=== PATIENT | female | born 1985 | race Caucasian/White ===

== ENCOUNTER 2017-05-25 15:00 | Emergency (ER) | payer OTHER ==
[2017-05-25 15:10] VITALS: RESP 16; TEMP 97.7; O2SAT 98
[2017-05-25] MEDS ORDERED: NS 500 ML IV ONE (16:06)
--- NOTE | 2017-05-25 16:08 | CPEKG ---
Heart Rate: 80 RR Interval: 750 P-R Interval: 100 QRSD Interval: 104 QT Interval: 384 QTC Interval: 443 P South Range: 54 QRS South Range: 90 T Wave South Range: 41 EKG Severity - BORDERLINE ECG - EKG Impression: SINUS RHYTHM EKG Impression: SHORT NV INTERVAL, ACCELERATED AV CONDUCTION EKG Impression: CONSIDER RIGHT VENTRICULAR HYPERTROPHY Electronically Signed By: Aleida Richard 25-May-2017 20:01:11
--- NOTE | 2017-05-25 16:15 | EDPHY ---
H & P Time Seen by Provider: 05/25/17 15:32 HPI/ROS: HPI Lightheaded, weakness. 31-year-old female by private vehicle with her . This patient reports that she has had a sensation of lightheadedness with physical exertion as well as some mild associated shortness of breath. She reports this has been on and off for the last week. She also reports having a strong heartbeat but but denies palpitations as described as an irregular or excessively fast heartbeat. No chest pain. No fever. No other complaints. ROS: Constitutional: No fever, no chills. As above. Eyes: No discharge. No changes in vision. ENT: No sore throat. No nasal congestion or rhinorrhea. Respiratory: No cough. No shortness of breath. Cardiac: No chest pain, no palpitations. Gastrointestinal: No abdominal pain, no vomiting, no diarrhea. Genitourinary: No hematuria. No dysuria or increased frequency with urination. Musculoskeletal: No back pain. No neck pain. No myalgias or arthralgias. Skin: No rashes. Neurological: No headache. No focal weakness or altered sensation. Past medical history: Graves disease. Radiated. Social history: Nonsmoker. No alcohol. Here with . Physical Exam: General Appearance: Alert, no distress. This patient is responding to questions appropriately and in full sentences. This patient appears well- hydrated and well-nourished. Eyes: Pupils equal and round no pallor or injection. No lid edema, erythema or injection. ENT, Mouth: Mucous membranes are moist. The pharyngeal tissues are unremarkable. No edema or swelling. No asymmetry suggestive of abscess. No erythema or exudates. Respiratory: There are no retractions, lungs are clear to auscultation with good air movement bilaterally. Cardiovascular: Regular rate and rhythm. No murmur. Gastrointestinal: Abdomen is soft and nontender, no masses, bowel sounds normal. No focal tenderness at McBurney's point. No Del Rosario sign. Neurological: Motor sensory function is grossly intact. Cranial nerves are normal. Gait is normal. Skin: Warm and dry, no rashes. Musculoskeletal: Neck is supple and nontender. Extremities are symmetrical. All joints range without pain or impingement. Psychiatric: No agitation. No depression. Database: EKG: EKG time is 4:06 p.m.; EKG shows a narrow complex normal sinus rhythm with a ventricular rate of 80. Short p.r. interval noted. No delta wave. Possible right ventricular hypertrophy. The QRS, QT intervals are within normal limits. There are no ST-T wave changes indicative of ischemic or injury pattern. No evidence of right heart strain. No evidence of WPW, Brugada syndrome, hypertrophic cardiomyopathy. Interpreted by me. Imaging: Chest x-ray PA and lateral; the cardiac mediastinal silhouette is unremarkable. No evidence of infiltrate or pneumothorax. No acute cardiopulmonary disease process noted. Interpreted by me. Procedures: Emergency department course: IV placed. She was placed on a radiation monitor. She was started on IV normal saline with 500 cc to be given over the next hour. EKG obtained and reviewed by myself. 5:00 p.m., patient re-evaluated. Resting comfortably at this time. Vital signs reviewed and are normal. I discussed results of all diagnostic tests in the emergency department. The differential diagnosis was reviewed. She feels comfortable going home at this time and I feel she is safe for discharge. Plan will be to have her follow up with [facility] for re-evaluation and echocardiogram. She has been instructed not to engage in any strenuous physical activity until seen and cleared by Cardiology. She endorses this plan. She understands for follow-up. Return to emergency department precautions were reviewed with her and her in detail. All of their questions were answered. She was discharged in good condition. Differential Diagnosis: The differential diagnosis on this patient includes but is not limited to all anxiety reaction, SVT, paroxysmal AFib, dehydration. WPW, Brugada syndrome, hypertrophic cardiomyopathy, PE, hyperthyroid, hypothyroid, hypokalemia, anemia unlikely. This represents a partial list of diagnoses considered. These considerations are based on history, physical exam, past history, reassessment and diagnostic testing. Smoking Status: Never smoked Constitutional: Initial Vital Signs Temperature (C) 36.5 C 05/25/17 15:07 Heart Rate 92 05/25/17 15:07 Respiratory Rate 16 05/25/17 15:07 Blood Pressure 151/93 H 05/25/17 15:07 O2 Sat (%) 98 05/25/17 15:07 O2 Delivery Mode Room Air Allergies/Adverse Reactions: No Known Allergies Allergy (Unverified 05/25/17 15:06) Home Medications: Medication Instructions Recorded NK [No Known Home Meds] 05/25/17 Medical Decision Making - Diagnostics Imaging Results: Imaging Impressions Chest X-Ray 05/25/17 16:09 Impression: Normal chest x-ray. - Data Points Laboratory Results: Laboratory Results 05/25/17 16:05 05/25/17 16:05 05/25/17 05/25/17 05/25/17 16:05 16:05 16:05 WBC RBC Hgb Hct MCV MCH MCHC RDW Plt Count MPV Neut % (Auto) Lymph % (Auto) Prentiss % (Auto) Eos % (Auto) Baso % (Auto) Nucleat RBC Rel Count Absolute Neuts (auto) Absolute Lymphs (auto) Absolute Monos (auto) Absolute Eos (auto) Absolute Basos (auto) Absolute Nucleated RBC Immature Gran % Immature Gran # D-Dimer Sodium 139 mEq/L mEq/L (134-144) Potassium 3.9 mEq/L mEq/L (3.5-5.2) Chloride 103 mEq/L mEq/L (97-110) Carbon Dioxide 23 mEq/l mEq/l (22-31) Anion Gap 13 mEq/L mEq/L (8-16) BUN 12 mg/dL mg/dL (7-23) Creatinine 0.8 mg/dL mg/dL (0.6-1.0) Estimated GFR > 60 Glucose 101 mg/dL H mg/dL (70-100) Calcium 9.8 mg/dL mg/dL (8.5-10.4) TSH 1.580 uIU/mL uIU/mL (0.465-4.680) Beta HCG, Qual NEGATIVE Urine Color PALE YELLOW Urine Appearance CLEAR Urine pH 7.0 (5.0-7.5) Ur Specific Sharon 1.004 (1.002-1.030) Urine Protein NEGATIVE (NEGATIVE) Urine Ketones NEGATIVE (NEGATIVE) Urine Blood NEGATIVE (NEGATIVE) Urine Nitrate NEGATIVE (NEGATIVE) Urine Bilirubin NEGATIVE (NEGATIVE) Urine Urobilinogen NEGATIVE EU EU (0.2-1.0) Ur Leukocyte Esterase NEGATIVE (NEGATIVE) Urine Glucose NEGATIVE (NEGATIVE) 05/25/17 05/25/17 16:05 16:05 WBC 6.72 10^3/uL 10^3/uL (3.80-9.50) RBC 5.06 10^6/uL 10^6/uL (4.18-5.33) Hgb 15.4 g/dL g/dL (12.6-16.3) Hct 44.8 % % (38.0-47.0) MCV 88.5 fL fL (81.5-99.8) MCH 30.4 pg pg (27.9-34.1) MCHC 34.4 g/dL g/dL (32.4-36.7) RDW 11.6 % % (11.5-15.2) Plt Count 224 10^3/uL 10^3/uL (150-400) MPV 10.2 fL fL (8.7-11.7) Neut % (Auto) 67.6 % % (39.3-74.2) Lymph % (Auto) 22.6 % % (15.0-45.0) Prentiss % (Auto) 6.7 % % (4.5-13.0) Eos % (Auto) 2.1 % % (0.6-7.6) Baso % (Auto) 0.7 % % (0.3-1.7) Nucleat RBC Rel Count 0.0 % % (0.0-0.2) Absolute Neuts (auto) 4.54 10^3/uL 10^3/uL (1.70-6.50) Absolute Lymphs (auto) 1.52 10^3/uL 10^3/uL (1.00-3.00) Absolute Monos (auto) 0.45 10^3/uL 10^3/uL (0.30-0.80) Absolute Eos (auto) 0.14 10^3/uL 10^3/uL (0.03-0.40) Absolute Basos (auto) 0.05 10^3/uL 10^3/uL (0.02-0.10) Absolute Nucleated RBC 0.00 10^3/uL 10^3/uL (0-0.01) Immature Gran % 0.3 % % (0.0-1.1) Immature Gran # 0.02 10^3/uL 10^3/uL (0.00-0.10) D-Dimer 0.27 ug/mLFEU ug/mLFEU (0.00-0.50) Sodium Potassium Chloride Carbon Dioxide Anion Gap BUN Creatinine Estimated GFR Glucose Calcium TSH Beta HCG, Qual Urine Color Urine Appearance Urine pH Ur Specific Sharon Urine Protein Urine Ketones Urine Blood Urine Nitrate Urine Bilirubin Urine Urobilinogen Ur Leukocyte Esterase Urine Glucose Medications Given: Discontinued Medications Sodium Chloride (Ns) 500 mls @ 1,000 mls/hr IV EDNOW ONE PRN Reason: Protocol Stop: 05/25/17 16:35 Last Admin: 05/25/17 16:31 Dose: 500 mls Departure - Departure Disposition: Home, Routine, Self-Care Clinical Impression: Lightheaded Condition: Good Instructions: Lightheadedness (ED) Additional Instructions: Read and follow provided instructions. Follow-up with Cardiology, Dr. Ezra Lee or 1 of his partners at [facility] this week for re-evaluation and echocardiogram. Call Saturday at 9:00 a.m. for appointment time. Explained this is for an emergency department follow-up for your lightheadedness. They will be able to access copies of her EKG as well. Keep well hydrated and get plenty of rest. No strenuous physical activity until you have been seen and cleared by Cardiology. Return to the emergency department for worsening symptoms, chest pain, shortness of breath, palpitations or other serious concerns. Referrals: Ezra Lee MD [Medical Doctor] - As per Instructions
[2017-05-25 16:16] LABS: % IMMATURE GRANULYOCYTES 0.3 % (0.0-1.1); ABSOLUTE IMMATURE GRANULOCYTES 0.02 10^3/uL (0.00-0.10); ADD DIFF? NO; ADD MORPH? NO; ADD SCAN? NO; ATYPICAL LYMPHOCYTE FLAG 20 (0-99); FRAGMENT RBC FLAG 0 (0-99); HEMATOCRIT 44.8 % (38.0-47.0); HEMOGLOBIN 15.4 g/dL (12.6-16.3); LEFT SHIFT FLG 0 (0-99); LIPEMIA HEMOLYSIS FLAG 90 (0-99); MEAN CELL HEMOGLOBIN 30.4 pg (27.9-34.1); MEAN CELL HEMOGLOBIN CONCENTR. 34.4 g/dL (32.4-36.7); MEAN CELL VOLUME 88.5 fL (81.5-99.8); MEAN PLATELET VOLUME 10.2 fL (8.7-11.7); PLATELET CLUMPS FLAG 20 (0-99); PLATELET COUNT 224 10^3/uL (150-400); RED BLOOD CELL COUNT 5.06 10^6/uL (4.18-5.33); RED CELL DISTRIBUTION WIDTH 11.6 % (11.5-15.2)
[2017-05-25 16:20] LABS: COLOR PALE YELLOW; LEUKOCYTE ESTERASE,URINE NEGATIVE (NEGATIVE); NITRITE,URINE NEGATIVE (NEGATIVE)
[2017-05-25 16:28] LABS: ANION GAP 13 mEq/L (8-16); CALCIUM 9.8 mg/dL (8.5-10.4); CARBON DIOXIDE 23 mEq/l (22-31); CHLORIDE 103 mEq/L (97-110); CREATININE 0.8 mg/dL (0.6-1.0); GLOMERULAR FILTRATION RATE > 60; GLUCOSE 101 mg/dL (70-100); POTASSIUM 3.9 mEq/L (3.5-5.2); SODIUM 139 mEq/L (134-144)
[2017-05-25 17:21] VITALS: BP 112/78; PULSE 72
== END 2017-05-25 17:19 | disposition home or self-care (01) ==
DX: R42 Dizziness and giddiness (principal); E86.9 Volume depletion, unspecified

== ENCOUNTER → 2018-03-17 | Outpatient (CLI) | payer OTHER | LOC: CIMAGING 13:44 | PROVIDERS: ATTEND Hospitalist | DX: N64.89 Other specified disorders of breast (principal) | CPT/HCPCS: 76641-PO ==

== ENCOUNTER 2018-07-17 12:46 | Inpatient (IN) | payer OTHER ==
[2018-07-17] MEDS ORDERED: OLIVE OIL 118 ML BTL MISC PRN (13:00)
[2018-07-17] MEDS ORDERED: IBUPROFEN 600 MG TAB PO PRN (13:00)
[2018-07-17] MEDS ORDERED: OXYTOCIN/RINGERS LACTATE 1,000 ML IV PRN (13:00)
[2018-07-17] MEDS ORDERED: MISOPROSTOL 200 MCG TAB PR PRN (13:00)
[2018-07-17] MEDS ORDERED: EPSOM SALT 454 GM TP PRN (13:00)
[2018-07-17] MEDS ORDERED: LIDOCAINE 1% 300 MG/30 ML SDV SC PRN (13:00)
[2018-07-17] MEDS ORDERED: TERBUTALINE SULFATE 1 MG/ML VIAL IV PRN (13:00)
[2018-07-17] MEDS ORDERED: LR 1,000 ML IV PRN (13:00)
[2018-07-17] MEDS ORDERED: AMMONIA AROMATIC 1 EACH AMP IH ONE (14:26)
[2018-07-17] MEDS ORDERED: MISOPROSTOL 200 MCG TAB ONE (14:26)
[2018-07-17] MEDS ORDERED: OLIVE OIL 118 ML BTL ONE (14:26)
[2018-07-17] MEDS ORDERED: OXYTOCIN 10 UNIT/ML VIAL ONE (14:26)
[2018-07-17] MEDS ORDERED: LIDOCAINE 1% 300 MG/30 ML SDV ONE (14:26)
[2018-07-17] MEDS ORDERED: TERBUTALINE SULFATE 1 MG/ML VIAL ONE (14:26)
[2018-07-17 14:32] LABS: PLATELET COUNT 184 10^3/uL (150-400)
[2018-07-17] MEDS ORDERED: LR 500 ML IV PRN (19:18)
--- NOTE | 2018-07-17 19:26 | PDGENHP ---
History and Physical - Chief Complaint Active labor - History of Present Illness Blanca is a 32 yo G1 today at 40w2d who presented this afternoon in active labor , dilated to 7-8cm, intact. She reports that she's been in prodromal early labor for many many hours at this point. Ctx's starting to get more regular, but not really intense until around 9am this AM. GBS negative. overall uncomplicated - hypothyroidism on Synthroid, H/o SAB x 2, issues with intermittent heart palpitations, marginal cord insertion. Anemic at 28 wks and started on iron. Most recently there had been a concern for oligohydramnios with an AMBIKA of 6 last week, with more reassuring values (15) on repeat scans earlier this week. labs: - A pos - Antibody negative - RPR NR - Hep B neg - HIV neg - Rubella IMMUNE - GC/c neg - Glucola 83 - GBS NEGATIVE History Information - Allergies/Home Medication List Allergies/Adverse Reactions: No Known Allergies Allergy (Unverified 07/17/18 13:59) Home Medications: Levothyroxine [Synthroid 137 mcg (*)] 137 mcg PO DAILY06 07/17/18 [Last Taken 1 Day Ago ~07/16/18] Vit27&Calcium/Iron/FA [] 07/17/18 [Last Taken 1 Day Ago ~07/16] I have personally reviewed and updated: family history, medical history, social history, surgical history - Past Medical History Additional medical history: Anemia, Hypothyroidism, H/o heart palpitations - Surgical History Additional surgical history: SAB x 2, HSC w polypectomy 2016, D&C for missed AB 2016 - Family History Additional family history: None - Social History Smoking Status: Never smoked Alcohol Use: None Review of Systems Review of Systems: ROS: 10pt was reviewed & negative except for what was stated in HPI & below Physical Exam Physical Exam: Appears uncomfortable, luis regularly Belly gravid, soft between contractions Lab Data & Imaging Review 07/17/18 14:15 WBC 16.32 10^3/uL (3.80-9.50) H 07/17/18 14:15 RBC 4.65 10^6/uL (4.18-5.33) 07/17/18 14:15 Hgb 14.6 g/dL (12.6-16.3) 07/17/18 14:15 Hct 41.8 % (38.0-47.0) 07/17/18 14:15 MCV 89.9 fL (81.5-99.8) 07/17/18 14:15 MCH 31.4 pg (27.9-34.1) 07/17/18 14:15 MCHC 34.9 g/dL (32.4-36.7) 07/17/18 14:15 RDW 12.2 % (11.5-15.2) 07/17/18 14:15 Plt Count 184 10^3/uL (150-400) 07/17/18 14:15 MPV 11.1 fL (8.7-11.7) 07/17/18 14:15 Neut % (Auto) 89.5 % (39.3-74.2) H 07/17/18 14:15 Lymph % (Auto) 5.3 % (15.0-45.0) L 07/17/18 14:15 Love % (Auto) 4.7 % (4.5-13.0) 07/17/18 14:15 Eos % (Auto) 0.0 % (0.6-7.6) L 07/17/18 14:15 Baso % (Auto) 0.2 % (0.3-1.7) L 07/17/18 14:15 Nucleat RBC Rel Count 0.0 % (0.0-0.2) 07/17/18 14:15 Absolute Neuts (auto) 14.61 10^3/uL (1.70-6.50) H 07/17/18 14:15 Absolute Lymphs (auto) 0.86 10^3/uL (1.00-3.00) L 07/17/18 14:15 Absolute Monos (auto) 0.77 10^3/uL (0.30-0.80) 07/17/18 14:15 Absolute Eos (auto) 0.00 10^3/uL (0.03-0.40) L 07/17/18 14:15 Absolute Basos (auto) 0.03 10^3/uL (0.02-0.10) 07/17/18 14:15 Absolute Nucleated RBC 0.00 10^3/uL (0-0.01) 07/17/18 14:15 Immature Gran % 0.3 % (0.0-1.1) 07/17/18 14:15 Immature Gran # 0.05 10^3/uL (0.00-0.10) 07/17/18 14:15 Patient ABO/Rh A POSITIVE 07/17/18 14:15 Antibody Screen NEGATIVE 07/17/18 14:15 Imaging Review: FHR 150bpm, mod gama, accels present, no decels Assessment & Plan Assessment: 32 yo G1 at 40w2d presents in active labor. - Expectant mgmt, planning unmedicated . - GBS negative. - Cont Synthroid PP, consider dose reduction. - Anemia - PP iron. - Rh pos, Rubella immune. TEJAL
[2018-07-17] MEDS ORDERED: OXYTOCIN/RINGERS LACTATE 500 ML IV SCH (19:30)
--- NOTE | 2018-07-17 22:10 | OBDEL ---
Info Type: Vaginal Presentation at Delivery: Vertex L&D Analgesia/Anesthesia Type: None GBS+: No Intrapartum Medications: Generic Name Dose Route Start Last Admin Trade Name Freq PRN Reason Stop Dose Admin Lactated Ringer's 1,000 mls @ 0 mls/hr 07/17/18 13:00 07/17/18 19:38 Lr IV 07/18/18 12:59 1,000 mls PRN PRN Administration SEE PROTOCOL CONDITIONS Protocol Per Protocol Oxytocin/Lactated Ringer's 500 mls @ 0 mls/hr 07/17/18 19:30 07/17/18 19:38 Pitocin 30 Units/Lr (Premix) IV 01/13/19 19:29 500 mls CONT FRANKLIN Administration Protocol Per Protocol Discontinued Medications Generic Name Dose Route Start Last Admin Trade Name Freq PRN Reason Stop Dose Admin Ibuprofen 600 mg 07/17/18 13:00 07/17/18 21:46 Motrin PO 600 mg ONCE PRN Administration post , pain Indications for Delivery: Spontaneous Labor Vaginal Delivery - Delivery Provider Delivery Physician/CNM: Alessandro Quintero - Labor and Delivery Onset of Contractions Date: 07/17/18 Onset of Contractions Time: 09:00 Onset of Contractions Type: Augmented Rupture of Membranes Date: 07/17/18 Rupture of Membranes Time: 15:28 Rupture of Membranes Type: Artificial Amniotic Fluid Color: Clear Placenta Delivery Date: 07/17/18 Placenta Delivery Time: 20:40 Total Hours of Labor: 11 Non-surgical Procedures: Amniotomy Laceration: 2nd Degree, Other (Specify) (Left sidewall, left labial) Repair: 3-0, 4-0 Vaginal Sponge Count Correct: Yes Vaginal Needle Count Correct: Yes Vaginal Sweep Performed: Yes EBL: 600 Delivery Events: Post Hemorrhage (Slow ongoing bleeding during stage 2, bleeding from repair. Never atony.) Delivery Comment: Patient presented at 7cm, desired natural labor/unmedicated. Progressed to complete, pushed for about 2 hrs before contractions spaced out, Pitocin added. Started to have slow ongoing bleeding for the last hour of stage II. Ultimately delivered in the squatting position on squat stool - baby delivered OA controlled. Nuchal cord x 1 loose and reduced at perineum. Baby up to mom' s chest. Eventually transferred mom and baby with cord still uncut to the bed. Cord clamped and cut after 4 minutes. Placenta delivered spontaneously. Uterus firm and contracted right away, no atony. Ongoing bleeding during repair of 2nd degree and left vaginal sidewall and left labial lac. Tissues very edematous with large varicosities which added to bleeding from laceration. - Medications Labor Augmentation/Induction Methods Used: Pitocin Labor Augmentation/Induction Indication: Inadequate Contraction Frequency Data GIAN: 07/15/18 Gestational Age: 40 week(s) and 2 day(s) Calderon Delivery Date: 07/17/18 Delivery Time: 20:38 Sex of : Female (Jeanne) Score (1 Min): 8 Score (5 Min): 9 Shoulder Dystocia Time Head Delivered: 20:38 Time Body Delivered: 20:39 ICD10 Worksheet Patient Problems: Problems Problem Status Onset PPH ( hemorrhage) Acute (spontaneous vaginal delivery) Acute - ICD10 Problem Qualifiers (1) (spontaneous vaginal delivery) (2) PPH ( hemorrhage) Qualifiers: hemorrhage type: other immediate Qualified Code(s): O72.1 - Other immediate hemorrhage
[2018-07-17] MEDS ORDERED: SIMETHICONE 80 MG TAB CHEW PO PRN (22:12)
[2018-07-17] MEDS ORDERED: oxyCODONE IR 5 MG TAB PO PRN (22:12)
[2018-07-17] MEDS ORDERED: HYDROCORTISONE 0.5% CREAM TP PRN (22:12)
[2018-07-17] MEDS: ACETAMINOPHEN 325 MG TAB PO SCH (22:15)
[2018-07-18] MEDS: IBUPROFEN 600 MG TAB PO SCH ×3 (03:45→17:52)
[2018-07-18] MEDS: LEVOTHYROXINE 137 MCG TAB PO SCH (06:16)
[2018-07-18] MEDS: ACETAMINOPHEN 325 MG TAB PO SCH ×4 (09:23→22:00)
[2018-07-18] MEDS: DOCUSATE SODIUM 100 MG CAP PO PRN (11:12)
--- NOTE | 2018-07-18 12:28 | OBPP ---
Progress Note Assessment/Plan: Assessment: 1) s/p with PPH with EBL 600 cc secondary to vag lac and repair, no atony POD # 0.5 - pt is stable 2) Anemia - pt is asymptomatic 3) Hypothyroid - stable on meds Plan: Continue routine pp care Will start iron BID, cont colace Encourage ambulation support prn 07/18/18 12:32 Subjective/ Course: 07/18/18 12:29 Pt seen and examined. Doing well, no complaints. She is mostly sore in her rectum. Denies any cramping. Mod lochia. Pt is OOB, luis reg diet, voiding and passing flatus. Denies any f/c/n/v/CP or SOB. She is not dizzy when OOB. BF well so far, working with . Objective: 07/18/18 00:30 Patient ABO/Rh A POSITIVE 07/17/18 14:15 Temp Pulse Resp BP Pulse Ox 36.8 C 116 H 16 98/66 L 97 07/18/18 08:00 07/18/18 08:00 07/18/18 08:00 07/18/18 08:00 07/18/18 05:12 Uterine Position/Fundal Height: Umbilicus -1 Uterine Tone: Firm Physical Exam - Physical Exam General Appearance: WD/WN, alert, no apparent distress Respiratory: lungs clear, normal breath sounds Cardiac/Chest: regular rate, rhythm Abdomen: normal bowel sounds, non-tender, soft, flatus (+) Extremities: non-tender, normal inspection Skin: normal color, warm/dry Neuro/Psych: alert, normal mood/affect, oriented x 3
[2018-07-18] MEDS: FERROUS SULFATE 140 MG TAB.ER PO SCH (14:29)
[2018-07-19] MEDS: IBUPROFEN 600 MG TAB PO SCH ×3 (01:27→16:03)
[2018-07-19] MEDS: ACETAMINOPHEN 325 MG TAB PO SCH ×2 (04:15→15:09)
[2018-07-19] MEDS: LEVOTHYROXINE 137 MCG TAB PO SCH (05:38)
[2018-07-19] MEDS: FERROUS SULFATE 140 MG TAB.ER PO SCH (08:35)
[2018-07-19] MEDS: DOCUSATE SODIUM 100 MG CAP PO PRN (08:35)
[2018-07-19 08:58] VITALS: BP 105/71
--- NOTE | 2018-07-19 13:13 | OBGCSDC ---
General Delivery Information - General Info : 3 Para: 1 Abortions: 0 Type: Vaginal L&D Analgesia/Anesthesia Type: None Admission Date: 07/17/18 Labs: Patient ABO/Rh A POSITIVE 07/17/18 14:15 Hct 26.1 % (38.0-47.0) L 07/18/18 00:30 - Hospital Course : 07/18/18 12:29 Pt seen and examined. Doing well, no complaints. She is mostly sore in her rectum. Denies any cramping. Mod lochia. Pt is OOB, luis reg diet, voiding and passing flatus. Denies any f/c/n/v/CP or SOB. She is not dizzy when OOB. BF well so far, working with . 07/19/18 13:09 Pt is doing much better this am. She has good pain control with alternating Ibuprofen and Tylenol. She tried a sitz bath which was also helpful. She is ambulating and voiding without difficulty and has min lochia. Baby is nursing well and she is working on latching. She feels ready to d/c home. Vaginal - Delivery Provider Delivery Physician/CNM: Alessandro Quintero - Diagnosis Labor: Augmented Rupture of Membranes Type: Artificial Amniotic Fluid Color: Clear Laceration: 2nd Degree, Other (Specify) (Left sidewall, left labial) Repair: 3-0, 4-0 Delivery Events: Post Hemorrhage (Slow ongoing bleeding during stage 2, bleeding from repair. Never atony.) - Procedures Non-surgical Procedures: Amniotomy - Delivery Non-surgical Procedures: Amniotomy EBL: 600 Data GIAN: 07/15/18 Gestational Age: 40 week(s) and 4 day(s) Calderon Delivery Date: 07/17/18 Delivery Time: 20:38 Sex of : Female (Jeanne) Score (1 Min): 8 Score (5 Min): 9 Discharge Information - Discharge Information Prescriptions: Ferrous Sulfate [Slow Fe 140 MG (*)] 140 mg PO DAILY #60 tab.er Ibuprofen [Motrin (*)] 600 mg PO Q6H #30 tab Condition: Good Instruction/Follow Up: Four Weeks, Six Weeks
--- NOTE | 2018-07-19 13:13 | OBPP ---
Progress Note Assessment/Plan: Assessment: 32 y/o PPD #2 s/p with PP hemorrhage doing well. Plan: D/ c home today with Rx ibuprofen and iron supplementation. Follow-up @ [facility] 4 and 6 weeks. Call for fever, heavy vaginal bleeding, breast issues or other complaints. 07/19/18 13:11 Subjective/ Course: 07/18/18 12:29 Pt seen and examined. Doing well, no complaints. She is mostly sore in her rectum. Denies any cramping. Mod lochia. Pt is OOB, luis reg diet, voiding and passing flatus. Denies any f/c/n/v/CP or SOB. She is not dizzy when OOB. BF well so far, working with . 07/19/18 13:09 Pt is doing much better this am. She has good pain control with alternating Ibuprofen and Tylenol. She tried a sitz bath which was also helpful. She is ambulating and voiding without difficulty and has min lochia. Baby is nursing well and she is working on latching. She feels ready to d/c home. Objective: 07/18/18 00:30 Patient ABO/Rh A POSITIVE 07/17/18 14:15 Temp Pulse Resp BP Pulse Ox 36.8 C 99 16 105/71 97 07/19/18 08:58 07/19/18 08:58 07/19/18 08:58 07/19/18 08:58 07/19/18 08:58 Uterine Position/Fundal Height: Umbilicus -2 Uterine Tone: Firm Physical Exam - Physical Exam General Appearance: alert, no apparent distress Neck: non-tender, full range of motion, supple Respiratory: chest non-tender, lungs clear, normal breath sounds Cardiac/Chest: regular rate, rhythm Abdomen: normal bowel sounds Extremities: swelling (no), Andrey's sign (neg)
--- NOTE | 2018-07-20 14:56 | CPEKG ---
Test Reason : OPEN Blood Pressure : / mmHG Vent. Rate : 115 BPM Atrial Rate : 113 BPM P-R Int : 112 ms QRS Dur : 100 ms QT Int : 321 ms P-R-T Axes : 057 074 036 degrees QTc Int : 444 ms Sinus tachycardia Confirmed by Sukhjinder Ching ([id number]) on 07/20/2018 2:55:40 PM Referred By: Confirmed By:Sukhjinder Ching
== END 2018-07-19 16:20 | disposition home or self-care (01) | DRG 806 ==
LOC: FLD 12:46 → FOB 07-18 03:00
PROVIDERS: ADMIT Obstetrics & Gynecology; ATTEND Obstetrics & Gynecology
DX: O99.02 Anemia complicating childbirth (principal); Z37.0 Single live birth; O72.2 Delayed and secondary postpartum hemorrhage; O70.1 Second degree perineal laceration during delivery; Z3A.40 40 weeks gestation of pregnancy; D64.9 Anemia, unspecified; E03.9 Hypothyroidism, unspecified; O69.82X0 Labor and delivery complicated by other cord entanglement, without compression, not applicable or unspecified; O99.284 Endocrine, nutritional and metabolic diseases complicating childbirth
CPT/HCPCS: J2590; J3105